=== PATIENT | female | born 1970 | race African-American/Black ===

== ENCOUNTER 2017-07-23 22:51 | Inpatient (IN) | payer OTHER ==
[~2017-07-23] VITALS: Ht 170.2 cm; Wt 70.1 kg
[~2017-07-23 22:51] MED LIST: ATARAX,VISTARIL25 MG PO; ATIVAN1 MG PO; Colace PO; LEVOTHROID125 MCG; LEVOTHYROXINE125 MCG PO; Levothroid,Synthroid PO; MACROBID100 MG PO; OLANZAPINE2.5 MG PO; THERAGRAN1 TABLET PO; ZyPREXA PO
[2017-07-24] MEDS ORDERED: HALDOL5 MG PO (01:39)
[2017-07-24 02:07] VITALS: BP 148/82
[2017-07-24 07:32] VITALS: BP 92/55
[2017-07-24 15:23] VITALS: BP 134/89
[2017-07-25 07:40] VITALS: BP 115/78
[2017-07-25 15:22] VITALS: BP 130/61
[2017-07-26 07:21] VITALS: BP 118/78
[2017-07-26 15:32] VITALS: BP 119/84
[2017-07-27 07:58] VITALS: BP 139/74
[2017-07-27 15:42] VITALS: BP 136/88
[2017-07-28 07:50] VITALS: BP 107/60
[2017-07-28 15:18] VITALS: BP 121/72
[2017-07-29 07:58] VITALS: BP 129/81
[2017-07-29 15:36] VITALS: BP 131/75
[2017-07-30 07:44] VITALS: BP 119/76
[2017-07-30 15:32] VITALS: BP 126/85
[2017-07-31 07:40] VITALS: BP 120/69
[2017-07-31 17:54] VITALS: BP 124/84
[2017-08-01 08:04] VITALS: BP 131/78
[2017-08-01 15:44] VITALS: BP 136/75
[2017-08-02 07:37] VITALS: BP 117/72
[2017-08-02 15:13] VITALS: BP 123/88
[2017-08-03 07:50] VITALS: BP 122/83
[2017-08-03 15:22] VITALS: BP 132/87
[2017-08-03 23:17] VITALS: BP 117/72
[2017-08-04 00:02] LABS: HEMATOCRIT 40.9 % (36.0-46.0); MCH 33.8 PG (29.0-34.0); MCHC 34.7 G/DL (30.0-36.0); MCV 97.4 FL (83-99); MEAN PLAT.VOLUME 10.2 uM^3 (9.5-12.4); PLATELET COUNT 197 K/uL (156-360); RBC DIS.WIDTH-CV 13.8 % (11.8-14.6); RBC DIS.WIDTH-SD 49.7 % (39-53); WHITE BLOOD COUNT 7.7 K/uL (4.1-10.2)
[2017-08-04 00:03] LABS: POINT-OF-CARE METER ID UU14188576; POINT-OF-CARE USER ID BHSMEW
[2017-08-04 00:13] LABS: CHLORIDE 107 mEq/L (99-109); POTASSIUM 3.5 mEq/L (3.7-5.4); SODIUM 138 mEq/L (136-147)
[2017-08-04 00:14] LABS: GLUCOSE 157 mg/dL (70-99)
[2017-08-04 00:16] LABS: ANION GAP 14 MEQ/L (2-14)
[2017-08-04 00:18] LABS: GFR ESTIMATE (CALCULATED) > 59 mL/min/
[2017-08-04 00:19] LABS: UREA NITROGEN (BUN) 8 mg/dL (9-23)
[2017-08-04 00:23] LABS: TROP-I INTERPRETATION NEGATIVE; TROPONIN-I < 0.01 ng/mL (0.0-0.30)
[2017-08-04 07:30] VITALS: BP 130/85
[2017-08-04 07:55] LABS: TROP-I INTERPRETATION NEGATIVE; TROPONIN-I 0.01 ng/mL (0.0-0.30)
[2017-08-04 15:22] VITALS: BP 146/77
[2017-08-05 07:51] VITALS: BP 120/68
[2017-08-05 16:11] VITALS: BP 128/74
[2017-08-06 07:38] VITALS: BP 115/70
[2017-08-07 07:56] VITALS: BP 103/66
[2017-08-07] MEDS ORDERED: QUETIAPINE FUM400 MG PO (10:05)
[2017-08-07] MEDS ORDERED: INDERAL10 MG PO (10:05)
[2017-08-07] MEDS ORDERED: QUETIAPINE FUM100 MG PO (10:05)
== END 2017-08-07 13:16 | disposition home or self-care (01) | DRG 885 ==
LOC: EME → EDBD 22:51 → EME 22:51 → 1WEST 07-24 00:29 → EDOF 07-24 00:29 → 1WEST 07-24 00:29 → ENRESERV 07-24 02:00 → 1WEST 07-24 02:02
PROVIDERS: Hospitalist; Psychiatry & Neurology Psychiatry
DX: F25.1 Schizoaffective disorder, depressive type (principal); R00.0 Tachycardia, unspecified; H53.8 Other visual disturbances; R63.4 Abnormal weight loss; Z91.128 Patient's intentional underdosing of medication regimen for other reason; G47.00 Insomnia, unspecified; F22 Delusional disorders; F60.0 Paranoid personality disorder; F41.0 Panic disorder [episodic paroxysmal anxiety]; Z68.24 Body mass index [BMI] 24.0-24.9, adult
CPT/HCPCS: 70450; 80048; 80053; 80306 90; 82607; 82746; 82948; 84439; 84443; 84484; 85025; 85027; 90839; 93005; 97150 GO; 97165 GO; 97168 GO; 99281; 99284; J2060; J2405